=== PATIENT | male | born 1950 | race African-American/Black ===

== ENCOUNTER 2018-02-01 04:55 | Emergency (ER) | payer SELFPAY ==
[~2018-02-01] VITALS: Ht 175.3 cm; Wt 93.0 kg
[~2018-02-01 04:55] MED LIST: ASPIRIN PO; FISH PO; LOSA50TA3 PO; PRAVASTATIN PO
[2018-02-01] MEDS ORDERED: DEXAMETHASONE 10 MG/ML VIAL IM ONE (09:00)
[2018-02-01 10:15] VITALS: BP 162/64
== END 2018-02-01 10:21 | disposition home or self-care (01) ==
LOC: ER 04:55
DX: T78.40XA Allergy, unspecified, initial encounter (principal); X58.XXXA Exposure to other specified factors, initial encounter; I10 Essential (primary) hypertension; I25.10 Atherosclerotic heart disease of native coronary artery without angina pectoris; E78.00 Pure hypercholesterolemia, unspecified; Z79.82 Long term (current) use of aspirin; Z87.891 Personal history of nicotine dependence
CPT/HCPCS: 96372; 99283; J1100; Z7610

== ENCOUNTER 2019-01-30 09:36 | Day surgery (SDC) | payer MEDICARE ==
[~2019-01-30] VITALS: Ht 175.3 cm; Wt 93.0 kg
[~2019-01-30 09:36] MED LIST changes: +TOBRAMYCIN/DEXAMETHASONE OPTH DROPS 2.5ML OP SCH
[2019-01-30] MEDS ORDERED: LACTATED RINGERS 1,000 ML IV SCH (10:35)
[2019-01-30 10:41] LABS: BASOPHILS % 0.4 % (0.0-2.0); EOSINOPHILS % 2.8 % (0.0-5.0); HEMATOCRIT. 44.8 % (42.0-52.0); HEMOGLOBIN. 14.8 g/dL (14.0-18.0); LYMPHOCYTES % 17.8 % (20.0-50.0); MEAN CORPUSCULAR HEMOGLOBIN 29.8 pg (28.0-32.0); MEAN CORPUSCULAR VOLUME 90.5 fL (80.0-94.0); MEAN PLATELET VOLUME 10.8 fl (7.4-10.4); MONOCYTES % 6.8 % (2.0-8.0); NEUTROPHILS % 72.2 % (40.0-76.0); PLATELET 154 x1000/uL (130-400); RED BLOOD CELL COUNT 4.95 mill/uL (4.7-6.1); RED CELL DISTRIBUTION WIDTH 14.1 % (11.6-14.6)
[2019-01-30 11:01] LABS: CHLORIDE 111 mEq/L (98-107)
[2019-01-30] MEDS ORDERED: TROPICAMIDE 1% OPHTH DROPS 15ML RIGHTEYE NR (11:10)
[2019-01-30] MEDS ORDERED: PHENYLEPHRINE 2.5% OPHTH 15 DROP/ML BOTTLE RIGHTEYE NR (11:10)
[2019-01-30] MEDS ORDERED: GENTAMICIN SULF 40MG/ML 2ML VIAL ONE (11:33)
[2019-01-30] MEDS ORDERED: TETRACAINE 0.5% OPHTH DROPS 4ML ONE ×2 (11:33→13:23)
[2019-01-30] MEDS ORDERED: TOBRAMYCIN/DEXAMETH 0.1/0.3% OPHTH SUSP 2.5ML ONE (11:42)
[2019-01-30] MEDS ORDERED: HYALURONATE SODIUM 14 MG/ML 0.85ML SYRINGE IO ONE (11:42)
[2019-01-30] MEDS ORDERED: METHYLPREDNISOLONE SOD SUCC 40 MG/ML VIAL ONE (12:06)
[2019-01-30] MEDS ORDERED: BALANCED SALT IRRIG SOLN COMB1 500ML OP NR (12:30)
[2019-01-30] MEDS ORDERED: FENTANYL CITRATE/PF 50MCG/ML 2ML VIAL ONE (12:37)
[2019-01-30] MEDS ORDERED: MIDAZOLAM HCL 2 MG/2 ML VIAL ONE (12:38)
[2019-01-30] MEDS ORDERED: PROPOFOL 200MG/20ML VIAL IV ONE (12:38)
[2019-01-30] MEDS ORDERED: DIPHENHYDRAMINE 50MG/ML VIAL ONE (12:38)
[2019-01-30] MEDS ORDERED: GLYCOPYRROLATE 0.2 MG/ML 2ML VIAL ONE (12:51)
[2019-01-30] MEDS ORDERED: LIDOCAINE HCL 2%/EPINEPHRINE 1:100,000 20 ML VIAL INFIL ONE (13:23)
[2019-01-30] MEDS ORDERED: BUPIVACAINE HCL/PF 0.75% (7.5MG/ML) 10ML ONE (13:23)
[2019-01-30] MEDS ORDERED: BALANCED SALT IRRIG SOLN 15ML ONE (13:23)
[2019-01-30] MEDS ORDERED: ACETYLCHOLINE CHLORIDE INTRAOCULAR SOLUTION 1:100 ELECTROLYTE DILUENT IO ONE (13:23)
[2019-01-30] MEDS ORDERED: HYDROMORPHONE HCL/PF 2MG/ML CPJ IV PRN (14:00)
== END 2019-01-30 15:15 | disposition home or self-care (01) ==
LOC: OR 09:36
PROVIDERS: ATTEND Ophthalmology
DX: H25.89 Other age-related cataract (principal); I25.10 Atherosclerotic heart disease of native coronary artery without angina pectoris; I10 Essential (primary) hypertension; Z87.891 Personal history of nicotine dependence
CPT/HCPCS: 36415; 66984; 80048; 85025; 93005; J1200; J2250; J2704; J3010; J3490; V2632; J1580; J2920

== ENCOUNTER 2019-02-04 19:00 | Emergency (ER) | payer MEDICARE ==
[~2019-02-04] VITALS: Ht 175.3 cm; Wt 94.9 kg
[~2019-02-04 19:00] MED LIST changes: -TOBRAMYCIN/DEXAMETHASONE OPTH DROPS 2.5ML OP SCH
[2019-02-04] MEDS: GENTAMICIN 0.3% OPHTH DROPS 5ML RIGHTEYE SCH (22:00)
[2019-02-04] MEDS ORDERED: KETOROLAC 60MG/2ML VIAL IM ONE (22:00)
[2019-02-04 22:57] LABS: HEMATOCRIT. 50.8 % (42.0-52.0); MEAN CORPUSCULAR HEMOGLOBIN 30.4 pg (28.0-32.0); MEAN CORPUSCULAR VOLUME 91.1 fL (80.0-94.0); MEAN PLATELET VOLUME 10.8 fl (7.4-10.4); PLATELET 171 x1000/uL (130-400); RED BLOOD CELL COUNT 5.58 mill/uL (4.7-6.1); RED CELL DISTRIBUTION WIDTH 14.2 % (11.6-14.6)
[2019-02-04 23:01] LABS: CHLORIDE 108 mEq/L (98-107)
[2019-02-04 23:15] LABS: PLATELET ESTIMATE NORMAL
[2019-02-05] MEDS ORDERED: PIPERACILLIN/TAZOBACTAM 3.375GM/50ML PREMIX IV ONE (02:45)
[2019-02-05] MEDS ORDERED: PIPERACILLIN/TAZ 3.375G PREMIX 50 ML IV NR (03:00)
[2019-02-05] MEDS: GENTAMICIN 0.3% OPHTH DROPS 5ML RIGHTEYE SCH (07:32)
[2019-02-05] MEDS ORDERED: ACETAZOLAMIDE SODIUM 500MG/VIAL IV ONE (10:30)
[2019-02-05] MEDS ORDERED: VANCOMYCIN 1500MG in DEXTROSE 5% WATER 250ML IV SCH (12:30)
[2019-02-05 12:54] VITALS: BP 126/74
[2019-02-05] MEDS ORDERED: ACETAMINOPHEN 325MG TABLET PO ONE (13:00)
[2019-02-05] MEDS ORDERED: PILOCARPINE HCL 1% OPHTH DROPS 15ML BOTHEYE SCH (14:00)
== END 2019-02-05 13:00 | disposition home or self-care (01) ==
LOC: ER 19:00
DX: H40.051 Ocular hypertension, right eye (principal); E78.00 Pure hypercholesterolemia, unspecified; I10 Essential (primary) hypertension; Z98.890 Other specified postprocedural states
CPT/HCPCS: 36415; 71045; 80053; 83880; 84484; 85025; 93005; 96372; 96374; 96375; 99284; J1120; J1885; J2543; J3370; J7060